=== PATIENT | female | born 2000 | race African-American/Black ===

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

== ENCOUNTER 2022-01-22 06:22 | Emergency (ER) | payer OTHER ==
[2022-01-22 06:42] VITALS: BP 107/70; PULSE 100; RESP 18; TEMP 98.5; BMI 26.5
== END 2022-01-22 08:24 | disposition left against medical advice (07) ==
LOC: JER 06:22
DX: J02.9 Acute pharyngitis, unspecified (principal)
CPT/HCPCS: 99281-25

== ENCOUNTER 2022-01-22 08:12 | Emergency (ER) | payer OTHER ==
[2022-01-22 08:42] VITALS: BP 108/67; PULSE 103; RESP 18; TEMP 97.9; BMI 25.4
[2022-01-22] MEDS ORDERED: ACETAMINOPHEN 325 MG TABLET (FP) PO ONE (08:52)
[2022-01-22] MEDS ORDERED: ACETAMINOPHEN 325 MG TABLET (FP) ONE (09:09)
== END 2022-01-22 09:37 | disposition home or self-care (01) ==
LOC: FER 08:12
DX: J02.9 Acute pharyngitis, unspecified (principal)
CPT/HCPCS: 0241U-QW; 87651; 99283-25

== ENCOUNTER 2022-01-25 00:22 | Emergency (ER) | payer OTHER ==
[2022-01-25 00:31] VITALS: BP 113/75; PULSE 94; RESP 17; TEMP 98; BMI 26.5
== END 2022-01-25 00:48 | disposition home or self-care (01) ==
LOC: FER 00:22
DX: O99.512 Diseases of the respiratory system complicating pregnancy, second trimester (principal); B97.4 Respiratory syncytial virus as the cause of diseases classified elsewhere; Z3A.18 18 weeks gestation of pregnancy
CPT/HCPCS: 99282-25

== ENCOUNTER 2022-05-06 05:26 | Observation (INO) | payer OTHER ==
[2022-05-06] MEDS ORDERED: ACETAMINOPHEN INJECTION 100 ML IVPB ONE (05:31)
[2022-05-06 05:35] VITALS: BMI 28.9
[2022-05-06] MEDS ORDERED: CEFTRIAXONE 1 GM/50 ML BAG ONE (05:36)
[2022-05-06] MEDS ORDERED: ACETAMINOPHEN 1000 MG/100 ML BAG IVPB ONE (05:40)
[2022-05-06] MEDS ORDERED: SODIUM CHLORIDE 0.9% 500 ML INFUS.BAG IV ONE (05:41)
[2022-05-06 06:36] LABS: HEMATOCRIT 32.2 % (32.4-45.2); HEMOGLOBIN 10.7 GM/dL (10.7-15.3); MCH 26.7 pg (25.7-33.7); MCHC 33.3 g/dl (32.0-36.0); MEAN CELL VOLUME 80.3 fl (80-96); MEAN PLT VOLUME 8.7 fl (7.5-11.1); PLATELET COUNT 223 10^3/uL (134-434); RBC 4.01 M/mm3 (3.60-5.2); RDW 13.7 % (11.6-15.6)
[2022-05-06 06:43] LABS: INR 1.1 (0.83-1.09); PROTHROMBIN TIME (PATIENT) 12.8 SEC (9.7-13.0)
[2022-05-06 06:46] LABS: ACTIVATED PTT 30.1 SECONDS (25.2-36.5)
[2022-05-06 06:57] LABS: ALBUMIN 2.6 g/dl (3.4-5.0); CALCIUM 8.4 mg/dL (8.5-10.1)
[2022-05-06 07:00] LABS: CREATININE 0.5 mg/dL (0.55-1.3)
[2022-05-06 07:01] LABS: BILIRUBIN,TOTAL 0.4 mg/dL (0.2-1); TOT PROT 6.6 g/dl (6.4-8.2)
[2022-05-06 08:32] LABS: EPI CELLS 15 /uL (0-25.1); HYALINE CASTS 2 /uL (0-3.1); PH,URINE 7.5 (5.0-8.0); URINE APPEARANCE CLOUDY; URINE BILIRUBIN NEGATIVE (NEGATIVE); URINE COLOR YELLOW; URINE GLUCOSE (UA) NEGATIVE (NEGATIVE); URINE KETONE NEGATIVE (NEGATIVE); URINE LEUK ESTERASE 3+ (NEGATIVE); URINE NITRITE POSITIVE (NEGATIVE); URINE PROTEIN 2+ (NEGATIVE); URINE RBC 109 /uL (0-23.9); URINE UROBILINOGEN 0.2 mg/dL (0.2-1.0); URINE WBC 2554 /uL (0-25.8)
[2022-05-06 08:33] VITALS: TEMP 98
[2022-05-06 08:43] LABS: URINE BACTERIA 566.3 /uL (0-1359)
[2022-05-06 08:44] LABS: YEAST NEGATIVE (NEGATIVE)
[2022-05-06 09:18] LABS: ANISOCYTOSIS 2+; MACROCYTOSIS 0
[2022-05-06 10:21] VITALS: BP 127/65; PULSE 99; RESP 18
[2022-05-06] MEDS ORDERED: DEXTROSE 5%-LACTATED RINGERS 1,000 ML IV SCH (12:45)
== END 2022-05-06 12:55 | disposition home or self-care (01) ==
LOC: JER 05:26 → INTOOBSV 07:53 → JERBED 07:53 → UNDOADMOB 07:53 → JERBED 08:50 → JLDR 09:57
PROVIDERS: ADMIT Obstetrics & Gynecology; ATTEND Obstetrics & Gynecology
PROC: 3E033NZ Introduction of Analgesics, Hypnotics, Sedatives into Peripheral Vein, Percutaneous Approach (ICD-10-PCS; principal; 2022-05-06)
PROC: 3E03329 Introduction of Other Anti-infective into Peripheral Vein, Percutaneous Approach (ICD-10-PCS; 2022-05-06)
PROC: 3E0337Z Introduction of Electrolytic and Water Balance Substance into Peripheral Vein, Percutaneous Approach (ICD-10-PCS; 2022-05-06)
DX: N12 Tubulo-interstitial nephritis, not specified as acute or chronic (principal); Z3A.33 33 weeks gestation of pregnancy; N39.0 Urinary tract infection, site not specified; O46.93 Antepartum hemorrhage, unspecified, third trimester
CPT/HCPCS: 36415; 80053; 81003; 85025; 85610; 85730; 86850; 86900; 86901; 87086; 93005; 93010; 96361; 96374; 96375; 99285-25; G0378

== ENCOUNTER 2022-06-30 09:20 | Inpatient (IN) | payer OTHER ==
[2022-06-30] MEDS ORDERED: DINOPROSTONE 10 MG VAGINAL SUPPOSITORY VG ONE (09:34)
[2022-06-30 10:35] VITALS: BMI 32.3
[2022-06-30 10:59] LABS: BASO % 0.1 % (0-2.0); EOS % 0.8 % (0-4.5); HEMATOCRIT 30.6 % (32.4-45.2); HEMOGLOBIN 10.1 GM/dL (10.7-15.3); LYMPH % 22.2 % (8-40); MCH 25.7 pg (25.7-33.7); MCHC 33.1 g/dl (32.0-36.0); MEAN CELL VOLUME 77.6 fl (80-96); MEAN PLT VOLUME 8.3 fl (7.5-11.1); MONO % 11.4 % (3.8-10.2); NEUT % 65.5 % (42.8-82.8); PLATELET COUNT 225 10^3/uL (134-434); RBC 3.94 M/mm3 (3.60-5.2); RDW 16.3 % (11.6-15.6); WHITE BLOOD COUNT 7.2 K/mm3 (4.0-10.0)
[2022-06-30 11:07] LABS: PROTHROMBIN TIME (PATIENT) 11.6 SEC (9.7-13.0)
[2022-06-30 11:10] LABS: ACTIVATED PTT 26.7 SECONDS (25.2-36.5)
[2022-06-30 11:19] LABS: POTASSIUM 4.2 mmol/L (3.5-5.1)
[2022-06-30 11:20] LABS: CALCIUM 8.9 mg/dL (8.5-10.1)
[2022-06-30 11:22] LABS: BLOOD UREA NITROGEN 9.3 mg/dL (7-18)
[2022-06-30 11:25] LABS: CREATININE 0.5 mg/dL (0.55-1.3)
[2022-06-30] MEDS: ELECTROLYTE-148 SOLN 1,000 ML IV SCH ×2 (11:45→19:53)
[2022-06-30] MEDS ORDERED: BUTORPHANOL TARTRATE 1 MG/ML VIAL IVPUSH ONE (22:32)
[2022-06-30] MEDS ORDERED: BUTORPHANOL TARTRATE 2 MG/ML VIAL IVPUSH ONE (22:32)
[2022-06-30] MEDS ORDERED: PROMETHAZINE HCL 25 MG/1 ML VIAL IVPB ONE (22:32)
[2022-06-30] MEDS ORDERED: OXYTOCIN 30 UNITS in 0.9% NS 30 UNIT/500 ML INFUS.BAG IVPB SCH (22:45)
[2022-06-30] MEDS ORDERED: OXYTOCIN 30 UNITS in 0.9% NS 30 UNIT/500 ML INFUS.BAG IVPB ONE (23:20)
[2022-07-01] MEDS ORDERED: PROMETHAZINE HCL 25 MG/1 ML VIAL ONE (04:55)
[2022-07-01] MEDS ORDERED: BUTORPHANOL TARTRATE 2 MG/ML VIAL ONE (04:55)
[2022-07-01] MEDS: ELECTROLYTE-148 SOLN 1,000 ML IV SCH ×2 (05:00→13:30)
[2022-07-01] MEDS ORDERED: CITRIC ACID/SODIUM CITRATE 30 ML UNIT-DOSE CUP PO ONE (13:03)
[2022-07-01] MEDS ORDERED: ELECTROLYTE-148 SOLN 1,000 ML IV SCH (13:15)
[2022-07-01] MEDS ORDERED: morphine SULFATE/PF 1 MG/2 ML (2cc Syringe - QUVA) ONE (13:21)
[2022-07-01] MEDS ORDERED: FENTANYL CITRATE/PF 50 MCG/ML VIAL ONE (13:21)
[2022-07-01] MEDS ORDERED: METHYLERGONOVINE MALEATE 0.2 MG/1 ML AMP IM PRN (14:52)
[2022-07-01 14:55] LABS: CORD BASE EXCESS -2.2 mmol/L (0-2); CORD HCO3 26.1 mmHg (20-29); CORD PCO2 59.3 mmHg (30-78); CORD pH 7.262 (7.14-7.44)
[2022-07-01 14:57] LABS: CORD BASE EXCESS -1.2 mmol/L (0-2); CORD HCO3 25.5 mmHg (20-29); CORD PCO2 49.5 mmHg (30-78); CORD pH 7.329 (7.14-7.44)
[2022-07-01] MEDS ORDERED: METHYLERGONOVINE MALEATE 0.2 MG/1 ML AMP IM ONE (14:57)
[2022-07-01] MEDS ORDERED: ONDANSETRON 4 MG/2 ML VIAL IVPUSH PRN (15:06)
[2022-07-01] MEDS ORDERED: OXYTOCIN 20 UNITS in 0.9% NS 20 UNIT/1,000 ML INFUS.BAG IV ONE (16:11)
[2022-07-01] MEDS: OXYTOCIN 20 UNITS in 0.9% NS 20 UNIT/1,000 ML INFUS.BAG IV SCH (16:25)
[2022-07-01] MEDS: CEFAZOLIN 1 GM in DEXTROSE 5%-WATER - 50 ML IVPB SCH (17:33)
[2022-07-01] MEDS: IBUPROFEN 800 MG/8 ML IJ IVPB PRN (18:14)
[2022-07-01] MEDS: ACETAMINOPHEN 325 MG TABLET (FP) PO PRN (21:25)
[2022-07-02] MEDS: CEFAZOLIN 1 GM in DEXTROSE 5%-WATER - 50 ML IVPB SCH ×2 (01:55→09:13)
[2022-07-02] MEDS: OXYTOCIN 20 UNITS in 0.9% NS 20 UNIT/1,000 ML INFUS.BAG IV SCH (01:55)
[2022-07-02] MEDS ORDERED: oxyCODONE HCL 5 MG TABLET PO PRN (02:52)
[2022-07-02] MEDS: IBUPROFEN 800 MG/8 ML IJ IVPB PRN (05:55)
[2022-07-02 08:26] LABS: BASO % 0.3 % (0-2.0); EOS % 0.4 % (0-4.5); HEMOGLOBIN 9.8 GM/dL (10.7-15.3); LYMPH % 17.9 % (8-40); MCH 25.6 pg (25.7-33.7); MCHC 32.6 g/dl (32.0-36.0); MEAN CELL VOLUME 78.6 fl (80-96); MEAN PLT VOLUME 8.9 fl (7.5-11.1); MONO % 9.6 % (3.8-10.2); NEUT % 71.8 % (42.8-82.8); PLATELET COUNT 222 10^3/uL (134-434); RBC 3.82 M/mm3 (3.60-5.2); RDW 16.4 % (11.6-15.6); WHITE BLOOD COUNT 13.2 K/mm3 (4.0-10.0)
[2022-07-02] MEDS: ENOXAPARIN NA (PORCINE) 40 MG/0.4 ML DISP.SYRIN SQ SCH (09:09)
[2022-07-02] MEDS ORDERED: FLU VACC QS2022-23(6MOS UP)/PF 60 MCG/0.5 ML SYRINGE IM ONE (10:00)
[2022-07-02] MEDS ORDERED: BISACODYL 10 MG SUPP.RECT RC PRN (14:52)
[2022-07-02] MEDS: IBUPROFEN 600 MG TABLET (FP) PO PRN (15:10)
[2022-07-02] MEDS: SIMETHICONE 80 MG TAB.CHEW (FP) PO PRN (21:01)
[2022-07-02] MEDS: ACETAMINOPHEN 325 MG TABLET (FP) PO PRN (21:01)
[2022-07-03] MEDS: IBUPROFEN 600 MG TABLET (FP) PO PRN ×2 (01:56→09:02)
[2022-07-03] MEDS: ENOXAPARIN NA (PORCINE) 40 MG/0.4 ML DISP.SYRIN SQ SCH (09:01)
[2022-07-03] MEDS: oxyCODONE HCL 5 MG TABLET PO PRN ×4 (09:12→21:39)
[2022-07-03] MEDS: ACETAMINOPHEN 325 MG TABLET (FP) PO PRN ×2 (16:35→23:22)
[2022-07-03 16:57] LABS: EPI CELLS >36 /uL (0-25.1); HYALINE CASTS 3 /uL (0-3.1); URINE APPEARANCE CLEAR; URINE BACTERIA 238 /uL (0-1359); URINE BILIRUBIN NEGATIVE (NEGATIVE); URINE COLOR YELLOW; URINE GLUCOSE (UA) NEGATIVE (NEGATIVE); URINE KETONE NEGATIVE (NEGATIVE); URINE LEUK ESTERASE 1+ (NEGATIVE); URINE NITRITE NEGATIVE (NEGATIVE); URINE PROTEIN NEGATIVE (NEGATIVE); URINE RBC 130 /uL (0-23.9); URINE UROBILINOGEN 0.2 mg/dL (0.2-1.0); URINE WBC 53 /uL (0-25.8)
[2022-07-03] MEDS: DOCUSATE SODIUM 100 MG CAPSULE (FP) PO SCH (21:40)
[2022-07-03] MEDS: SIMETHICONE 80 MG TAB.CHEW (FP) PO PRN (21:40)
[2022-07-04] MEDS: SIMETHICONE 80 MG TAB.CHEW (FP) PO PRN ×3 (00:16→06:37)
[2022-07-04] MEDS: oxyCODONE HCL 5 MG TABLET PO PRN ×2 (03:29→06:37)
[2022-07-04] MEDS: ACETAMINOPHEN 325 MG TABLET (FP) PO PRN (08:51)
[2022-07-04 09:51] LABS: BASO % 0.3 % (0-2.0); EOS % 1.7 % (0-4.5); HEMATOCRIT 32.1 % (32.4-45.2); HEMOGLOBIN 10.6 GM/dL (10.7-15.3); LYMPH % 25.1 % (8-40); MCH 25.8 pg (25.7-33.7); MCHC 33.2 g/dl (32.0-36.0); MEAN CELL VOLUME 77.6 fl (80-96); MEAN PLT VOLUME 7.8 fl (7.5-11.1); MONO % 10.9 % (3.8-10.2); PLATELET COUNT 250 10^3/uL (134-434); RBC 4.13 M/mm3 (3.60-5.2); RDW 16.8 % (11.6-15.6); WHITE BLOOD COUNT 7.7 K/mm3 (4.0-10.0)
[2022-07-04] MEDS: ENOXAPARIN NA (PORCINE) 40 MG/0.4 ML DISP.SYRIN SQ SCH (09:59)
[2022-07-04] MEDS: DOCUSATE SODIUM 100 MG CAPSULE (FP) PO SCH (09:59)
[2022-07-04 11:20] VITALS: BP 116/78; PULSE 94; RESP 16; TEMP 98.3
== END 2022-07-04 11:45 | disposition home or self-care (01) | DRG 540 ==
LOC: JLDR 09:20 → J3W 07-01 16:45
PROVIDERS: ADMIT Obstetrics & Gynecology; ATTEND Obstetrics & Gynecology
PROC: 3E0P7VZ Introduction of Hormone into Female Reproductive, Via Natural or Artificial Opening (ICD-10-PCS; 2022-06-30)
PROC: 10D00Z1 Extraction of Products of Conception, Low, Open Approach (ICD-10-PCS; principal; 2022-07-01)
DX: O48.0 Post-term pregnancy (principal); Z3A.40 40 weeks gestation of pregnancy; O61.0 Failed medical induction of labor; Z37.0 Single live birth
CPT/HCPCS: 36415; 36600; 80048; 81003; 82803; 85025; 85610; 85730; 86780; 86850; 86900; 86901; 87086; 88307-TC; C9803-CS; G0008; Q2036; U0003; U0005

== ENCOUNTER 2022-08-06 13:45 | Emergency (ER) | payer OTHER ==
[2022-08-06 13:50] VITALS: BMI 29.2
[2022-08-06] MEDS ORDERED: KETOROLAC TROMETHAMINE 30 MG/1 ML VIAL IM ONE (14:42)
[2022-08-06] MEDS ORDERED: ACETAMINOPHEN 325 MG TABLET (FP) PO ONE (14:42)
[2022-08-06] MEDS ORDERED: ONDANSETRON 4 MG TABLET PO ONE (14:48)
[2022-08-06] MEDS ORDERED: SODIUM CHLORIDE 0.9% 500 ML INFUS.BAG IV ONE (14:52)
[2022-08-06] MEDS ORDERED: ONDANSETRON 4 MG/2 ML VIAL IVPB ONE (14:53)
[2022-08-06] MEDS ORDERED: ACETAMINOPHEN 1000 MG/100 ML BAG IVPB ONE (14:53)
[2022-08-06] MEDS ORDERED: ACETAMINOPHEN 500 MG TABLET (FP) ONE (15:04)
[2022-08-06] MEDS ORDERED: KETOROLAC TROMETHAMINE 30 MG/1 ML VIAL ONE (15:04)
[2022-08-06 15:49] LABS: EPI CELLS >36 /uL (0-25.1); HYALINE CASTS 1 /uL (0-3.1); URINE APPEARANCE CLEAR; URINE BACTERIA >9,000 /uL (0-1359); URINE BILIRUBIN NEGATIVE (NEGATIVE); URINE COLOR YELLOW; URINE GLUCOSE (UA) NEGATIVE (NEGATIVE); URINE KETONE NEGATIVE (NEGATIVE); URINE LEUK ESTERASE 3+ (NEGATIVE); URINE NITRITE POSITIVE (NEGATIVE); URINE PROTEIN NEGATIVE (NEGATIVE); URINE RBC 97 /uL (0-23.9); URINE UROBILINOGEN 0.2 mg/dL (0.2-1.0); URINE WBC 221 /uL (0-25.8)
[2022-08-06] MEDS ORDERED: CEFTRIAXONE 1 GM in DEXTROSE 5%-WATER - 50 ML IVPB ONE (16:00)
[2022-08-06] MEDS ORDERED: ACETAMINOPHEN INJECTION 100 ML IVPB ONE (16:03)
[2022-08-06] MEDS ORDERED: ONDANSETRON 4 MG/2 ML VIAL ONE (16:04)
[2022-08-06] MEDS ORDERED: KETOROLAC TROMETHAMINE 30 MG/1 ML VIAL IVPUSH ONE (16:06)
[2022-08-06 16:38] LABS: VENOUS BASE EXCESS -2.1 mmol/L (-2-2); VENOUS O2 SATURATION 63.7 % (70-80); VENOUS PCO2 34.5 mmHg (38-52); VENOUS PH 7.417 (7.310-7.410)
[2022-08-06 16:40] LABS: BASO % 0.2 % (0-2.0); EOS % 0.2 % (0-4.5); HEMATOCRIT 33.6 % (32.4-45.2); LYMPH % 5.6 % (8-40); MCH 25.6 pg (25.7-33.7); MCHC 32.7 g/dl (32.0-36.0); MEAN CELL VOLUME 78.3 fl (80-96); MEAN PLT VOLUME 8.2 fl (7.5-11.1); MONO % 7.9 % (3.8-10.2); NEUT % 86.1 % (42.8-82.8); PLATELET COUNT 209 10^3/uL (134-434); RDW 18.8 % (11.6-15.6)
[2022-08-06] MEDS ORDERED: CEFTRIAXONE 1 GM/50 ML BAG ONE (16:51)
[2022-08-06 16:57] LABS: POTASSIUM 3.8 mmol/L (3.5-5.1)
[2022-08-06 17:00] LABS: ALBUMIN 3.3 g/dl (3.4-5.0); CALCIUM 9.1 mg/dL (8.5-10.1)
[2022-08-06 17:01] LABS: BLOOD UREA NITROGEN 8.7 mg/dL (7-18)
[2022-08-06 17:03] LABS: CREATININE 0.8 mg/dL (0.55-1.3)
[2022-08-06 17:05] LABS: BILIRUBIN,TOTAL 0.7 mg/dL (0.2-1); TOT PROT 7.1 g/dl (6.4-8.2)
[2022-08-06 17:27] VITALS: BP 103/63; PULSE 100; RESP 16; TEMP 98.6
== END 2022-08-06 17:33 | disposition home or self-care (01) ==
LOC: JERFT 13:45 → JER 13:45 → JERFT 17:33
PROC: 3E033GC Introduction of Other Therapeutic Substance into Peripheral Vein, Percutaneous Approach (ICD-10-PCS; principal; 2022-08-06)
PROC: 3E033NZ Introduction of Analgesics, Hypnotics, Sedatives into Peripheral Vein, Percutaneous Approach (ICD-10-PCS; 2022-08-06)
PROC: 3E0333Z Introduction of Anti-inflammatory into Peripheral Vein, Percutaneous Approach (ICD-10-PCS; 2022-08-06)
PROC: 3E033GC Introduction of Other Therapeutic Substance into Peripheral Vein, Percutaneous Approach (ICD-10-PCS; 2022-08-06)
DX: R68.83 Chills (without fever) (principal); R53.1 Weakness; M79.10 Myalgia, unspecified site; N12 Tubulo-interstitial nephritis, not specified as acute or chronic; Z20.822 Contact with and (suspected) exposure to COVID-19
CPT/HCPCS: 0241U-QW; 36415; 71045-TC-FY; 80053; 81003; 82550; 82803; 83605; 83690; 84703; 85025; 87086; 87186; 93005; 93010; 99285-25

== ENCOUNTER 2023-02-20 12:10 | Emergency (ER) | payer OTHER ==
[2023-02-20 12:36] VITALS: BP 130/74; PULSE 17; RESP 16; TEMP 98.3; BMI 29.2
[2023-02-20 15:35] LABS: EPI CELLS 17 /uL (0-25.1); HYALINE CASTS 0 /uL (0-3.1); PH,URINE 7.5 (5.0-8.0); URINE APPEARANCE Error; URINE BACTERIA >9,000 /uL (0-1359); URINE BILIRUBIN NEGATIVE (NEGATIVE); URINE COLOR YELLOW; URINE GLUCOSE (UA) NEGATIVE (NEGATIVE); URINE KETONE TRACE (NEGATIVE); URINE LEUK ESTERASE NEGATIVE (NEGATIVE); URINE NITRITE POSITIVE (NEGATIVE); URINE PROTEIN NEGATIVE (NEGATIVE); URINE RBC 7 /uL (0-23.9); URINE WBC 8 /uL (0-25.8)
[2023-02-20 15:37] LABS: HCG,QUALITATIVE URINE POSITIVE
== END 2023-02-20 16:41 | disposition home or self-care (01) ==
LOC: JER 12:10
DX: O23.40 Unspecified infection of urinary tract in pregnancy, unspecified trimester (principal); O21.9 Vomiting of pregnancy, unspecified; O26.899 Other specified pregnancy related conditions, unspecified trimester; R35.0 Frequency of micturition; R12 Heartburn; Z3A.00 Weeks of gestation of pregnancy not specified
CPT/HCPCS: 81003; 84703; 87086; 87186; 99283-25

== ENCOUNTER 2023-02-21 19:08 | Emergency (ER) | payer OTHER ==
[2023-02-21 20:04] VITALS: BP 122/81; PULSE 106; RESP 14; TEMP 98.7; BMI 29.2
[2023-02-21] MEDS ORDERED: ACETAMINOPHEN 1000 MG/100 ML BAG IVPB ONE (21:03)
[2023-02-21] MEDS ORDERED: SODIUM CHLORIDE 0.9% 500 ML INFUS.BAG IV ONE (21:03)
[2023-02-21] MEDS ORDERED: ONDANSETRON 4 MG/2 ML VIAL IVPUSH ONE (21:04)
[2023-02-21] MEDS ORDERED: ONDANSETRON 4 MG/2 ML VIAL ONE (21:44)
[2023-02-21] MEDS ORDERED: ACETAMINOPHEN INJECTION 100 ML IVPB ONE (21:44)
[2023-02-21 21:50] LABS: BASO % 0.3 % (0-2.0); EOS % 0.4 % (0-4.5); HEMATOCRIT 32.3 % (32.4-45.2); HEMOGLOBIN 10.6 GM/dL (10.7-15.3); LYMPH % 16.1 % (8-40); MCH 26.8 pg (25.7-33.7); MCHC 32.8 g/dl (32.0-36.0); MEAN CELL VOLUME 81.8 fl (80-96); MEAN PLT VOLUME 7.5 fl (7.5-11.1); MONO % 12.4 % (3.8-10.2); NEUT % 70.8 % (42.8-82.8); PLATELET COUNT 273 10^3/uL (134-434); RBC 3.95 M/mm3 (3.60-5.2); WHITE BLOOD COUNT 5.9 K/mm3 (4.0-10.0)
[2023-02-21 22:30] LABS: POTASSIUM 3.1 mmol/L (3.5-5.1)
[2023-02-21 22:32] LABS: CALCIUM 8.1 mg/dL (8.5-10.1)
[2023-02-21 22:33] LABS: ALBUMIN 3.7 g/dl (3.4-5.0); BLOOD UREA NITROGEN 4.9 mg/dL (7-18)
[2023-02-21 22:36] LABS: CREATININE 0.6 mg/dL (0.55-1.3)
[2023-02-21 22:38] LABS: BILIRUBIN,TOTAL 0.5 mg/dL (0.2-1); TOT PROT 7.4 g/dl (6.4-8.2)
[2023-02-21] MEDS ORDERED: CEPHALEXIN MONOHYDRATE 500 MG CAPSULE (UD) PO ONE (22:54)
[2023-02-21] MEDS ORDERED: POTASSIUM CHLORIDE TABS 20 MEQ TABLET.ER (FP) PO ONE ×2 (23:09→23:30)
[2023-02-21] MEDS ORDERED: CEPHALEXIN MONOHYDRATE 500 MG CAPSULE (UD) ONE (23:29)
== END 2023-02-21 23:38 | disposition home or self-care (01) ==
LOC: JER 19:08
PROC: 3E033NZ Introduction of Analgesics, Hypnotics, Sedatives into Peripheral Vein, Percutaneous Approach (ICD-10-PCS; principal; 2023-02-21)
PROC: 3E033GC Introduction of Other Therapeutic Substance into Peripheral Vein, Percutaneous Approach (ICD-10-PCS; 2023-02-21)
DX: O20.0 Threatened abortion (principal); O99.281 Endocrine, nutritional and metabolic diseases complicating pregnancy, first trimester; E87.6 Hypokalemia; Z3A.01 Less than 8 weeks gestation of pregnancy
CPT/HCPCS: 76830-TC; 80053; 84702; 85025; 86850; 86900; 86901; 87491; 87591; 99284-25

== ENCOUNTER 2023-09-11 15:02 | Emergency (ER) | payer OTHER ==
[2023-09-11 15:38] VITALS: BP 122/70; PULSE 97; RESP 16; TEMP 98.3; BMI 25.4
[2023-09-11] MEDS ORDERED: IBUPROFEN 600 MG TABLET (FP) PO ONE (17:32)
[2023-09-11] MEDS ORDERED: BACITRACIN ZINC 15 GM TUBE TOPICAL OINTMENT ONE (17:32)
[2023-09-11] MEDS ORDERED: DIPHTH,PERTUSS(ACELL),TET 0.5 ML DISP.SYRIN IM ONE (17:33)
[2023-09-11] MEDS: IBUPROFEN 600 MG TABLET (FP) PO ONE (17:36)
[2023-09-11] MEDS: BACITRACIN ZINC 15 GM TUBE TOPICAL OINTMENT TP ONE (17:37)
[2023-09-11] MEDS: DIPHTH,PERTUSS(ACELL),TET 0.5 ML DISP.SYRIN IM ONE (17:37)
== END 2023-09-11 17:44 | disposition home or self-care (01) ==
LOC: JERFT 15:02
PROC: 3E0234Z Introduction of Serum, Toxoid and Vaccine into Muscle, Percutaneous Approach (ICD-10-PCS; principal; 2023-09-11)
DX: S61.011A Laceration without foreign body of right thumb without damage to nail, initial encounter (principal); W22.8XXA Striking against or struck by other objects, initial encounter; Z23 Encounter for immunization
CPT/HCPCS: 73130-TC-RT-FY; 90471; 90715; 99284-25

== ENCOUNTER 2023-12-25 08:33 | Emergency (ER) | payer OTHER ==
[2023-12-25 09:18] LABS: EPI CELLS >36 /uL (0-25.1); HYALINE CASTS 22 /uL (0-3.1); PH,URINE 5.5 (5.0-8.0); URINE APPEARANCE CLOUDY; URINE BACTERIA 1366 /uL (0-1359); URINE BILIRUBIN NEGATIVE (NEGATIVE); URINE COLOR YELLOW; URINE GLUCOSE (UA) NEGATIVE (NEGATIVE); URINE KETONE TRACE (NEGATIVE); URINE LEUK ESTERASE 2+ (NEGATIVE); URINE NITRITE NEGATIVE (NEGATIVE); URINE PROTEIN TRACE (NEGATIVE); URINE RBC 25 /uL (0-23.9); URINE UROBILINOGEN 0.2 mg/dL (0.2-1.0); URINE WBC 680 /uL (0-25.8)
[2023-12-25 09:43] VITALS: BP 104/72; PULSE 99; RESP 16; TEMP 98.8; BMI 27.3
[2023-12-25 10:22] LABS: HCG,QUALITATIVE URINE Negative
[2023-12-25 14:42] LABS: HIV INTERPRETATION NEGATIVE (NEGATIVE)
== END 2023-12-25 11:26 | disposition home or self-care (01) ==
LOC: JERFT 08:33
DX: N39.0 Urinary tract infection, site not specified (principal); R10.11 Right upper quadrant pain; R10.12 Left upper quadrant pain; R30.0 Dysuria; R35.0 Frequency of micturition
CPT/HCPCS: 36415; 81003; 84703; 86803; 87086; 87186; 87389; 87491; 87591; 87661; 99283-25

== ENCOUNTER 2024-01-09 15:43 | Emergency (ER) | payer OTHER ==
[2024-01-09 16:38] VITALS: BP 132/64; PULSE 108; RESP 20; TEMP 99.5; BMI 27.3
== END 2024-01-09 16:26 | disposition home or self-care (01) ==
LOC: JERFT 15:43
DX: A64 Unspecified sexually transmitted disease (principal)
CPT/HCPCS: 96372; 99284-25